=== PATIENT | female | born 1975 | race Caucasian/White ===

== ENCOUNTER → 2021-01-03 09:38 | Outpatient (CLI) | payer OTHER, SELFPAY ==
[2021-01-03] MEDS: COVID-19 VACC #1, MRNA(MOD) 100 MCG/0.5 ML VIAL IM (09:47)
== END ==
PROVIDERS: Visit Provider Internal Medicine
DX: Z23 Encounter for immunization (principal)
CPT/HCPCS: 0011A; 91301

== ENCOUNTER → 2021-02-01 09:35 | Outpatient (CLI) | payer OTHER, SELFPAY ==
[2021-02-01] MEDS: COVID-19 VACC #2, MRNA(MOD) 100 MCG/0.5 ML VIAL IM (09:50)
== END ==
PROVIDERS: Visit Provider Internal Medicine
DX: Z23 Encounter for immunization (principal)
CPT/HCPCS: 0012A; 91301